=== PATIENT | male | born 1995 | race Two or more races ===

== ENCOUNTER → 2021-08-21 | Emergency (ER) | payer SELFPAY ==
[~2021-08-21] VITALS: Ht 177.8 cm; Wt 74.8 kg
[~2021-08-21] MED LIST: CYCL5TAB PO; CYCLOBENZAPRINE 10 MG TABLET ONE; CYCLOBENZAPRINE 10 MG TABLET PO ONE; IBUP-1957 PO; KETOROLAC TROMETHAMINE INJ 30 MG/ML VIAL IM ONE; KETOROLAC TROMETHAMINE INJ 30 MG/ML VIAL ONE; ONDANSETRON 4 MG TAB.RAPDIS ONE
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
--- NOTE | 2021-08-21 14:30 | NUR ---
TO ER CHAIR 1 FOR EVAL,NO APPARENT CHANGE IN CONDITION
[2021-08-21 16:24] VITALS: BP 141/76
--- NOTE | 2021-08-21 16:24 | NUR ---
Patient discharged to home in stable condition. Written and verbal after care instructions given. Patient verbalizes understanding of instruction.
== END | disposition home or self-care (01) ==
LOC: ER 13:40
DX: S16.1XXA Strain of muscle, fascia and tendon at neck level, initial encounter (principal); M43.6 Torticollis; Z60.2 Problems related to living alone; Z79.899 Other long term (current) drug therapy; V49.49XA Driver injured in collision with other motor vehicles in traffic accident, initial encounter; Y93.89 Activity, other specified; Y92.413 State road as the place of occurrence of the external cause; Y99.8 Other external cause status
CPT/HCPCS: 70450; 71045; 72125; 96372; 99284; J1885; Q0162